=== PATIENT | female | born 1975 | race Caucasian/White ===

== ENCOUNTER → 2017-06-29 14:05 | Outpatient (CLI) | payer OTHER, MEDICAID ==
[2017-06-29 15:15] LABS: APPEARANCE CLEAR (CLEAR); BILIRUBIN NEGATIVE (NEGATIVE); COLOR YELLOW (YELLOW); GLUCOSE NEGATIVE (NEGATIVE); KETONE NEGATIVE (NEGATIVE); LEUKOCYTE ESTERASE NEGATIVE (NEGATIVE); NITRITE NEGATIVE (NEGATIVE); PROTEIN NEGATIVE (NEGATIVE); SPECIFIC GRAVITY 1.015 (1.005-1.020); UROBILINOGEN NORMAL (NORMAL)
== END | disposition home or self-care (01) ==
LOC: D.LDO 14:05
PROVIDERS: Obstetrics & Gynecology
DX: O26.893 Other specified pregnancy related conditions, third trimester (principal); Z3A.32 32 weeks gestation of pregnancy; R10.9 Unspecified abdominal pain

== ENCOUNTER 2017-08-01 10:27 | Inpatient (IN) | payer OTHER, MEDICAID ==
[2017-08-01] VITALS (22 sets, daily range): BP systolic 150–199; BP diastolic 75–99; BMI 38.0
[2017-08-01 11:35] LABS: ANION GAP 13.4 mmol/L (8-16); CALCIUM 8.6 mg/dL (8.5-10.1); CARBON DIOXIDE 22.8 mmol/L (21.0-32.0); CREATININE - SERUM 0.9 mg/dL (0.6-1.3); POTASSIUM - SERUM 3.2 mmol/L (3.5-5.1); URIC ACID 6.9 mg/dL (2.6-7.2)
[2017-08-01 12:25] LABS: HEMATOCRIT 33.1 % (36.0-48.0); MCH 27.2 pg (26.0-34.0); MCHC 33.2 g/dL (31.0-37.0); MCV 81.9 fL (80.0-100.0); MEAN PLATELET VOLUME 11.1 fL (7.4-10.4); RBC 4.04 10x6/uL (4.00-5.40); RDW 14.7 % (11.5-14.5); WBC 7.3 10x3/uL (4.8-10.8)
[2017-08-01 12:44] LABS: APPEARANCE SLT CLOUDY (CLEAR); BILIRUBIN NEGATIVE (NEGATIVE); COLOR DK YELLOW (YELLOW); GLUCOSE NEGATIVE (NEGATIVE); KETONE NEGATIVE (NEGATIVE); NITRITE NEGATIVE (NEGATIVE); PROTEIN 3+ mg/dL (NEGATIVE); SPECIFIC GRAVITY 1.015 (1.005-1.020)
[2017-08-01 12:45] LABS: BACTERIA MODERATE /hpf (NONE SEEN); EPITHELIAL CELLS 0-5 /hpf (0-5); GRANULAR CAST 0-5 /lpf (NONE SEEN); HYALINE CAST RARE /lpf (NONE SEEN); MUCUS <1+ /lpf (NONE SEEN); RED CELLS - URINE 0-5 /hpf (0-5)
[2017-08-01] MEDS ORDERED: FERROUS SULFAT325 MG PO (13:32)
--- NOTE | 2017-08-01 15:42 | NUR ---
FUNDUS IS MIDLINE AT UMBILICUS AND FIRM. MILY PAD SCANT RED BLEDDING. WILL CONTINUE TO MONITOR
--- NOTE | 2017-08-01 15:53 | NUR ---
RECEIVED PT FROM RECOVERY ROOM VIA PT BED, RESP EVEN AND UNLABORED, HEART RRR, IV TO LEFT WRIST PATENT INFUSING NS WITH 20U OF PITOCIN AT 125ML/HR WITHOUT DIFFICULTY, NO S/SX OF INFILTRATION/INFECTION, LOW TRANSVERSE ABDOMINAL DRG CDI, U/U, FUNDUS FIRM, LOCHIA RUBRA TO PERIPAD NOTED SCANT AMOUNT, NO CLOTS NOTED, NO EDEMA NOTED TO BLE, PEDAL PULSES 2+ BILATERALLY, SCD'S ON AND PUMP WORKING PROPERLY, PIZARRO CATHETER IN PLACE TO GRAVITY DRAINAGE WITH 100ML CLEAR FILOMENA COLORED URINE IN BAG, INCENTIVE SPIROMETRY TEACHING COMPLETED WITH PT RETURN DEMONSTRATION UP TO 1500ML INSPIRED, C/L IN EASY REACH.
--- NOTE | 2017-08-01 16:43 | NUR ---
MAGNESIUM SULFATE BOLUS COMPLETED, MAINTENANCE DOSE INITIATED PER MD ORDERS. REPORTS PAIN LEVEL REMAINS A 6 ON NUMERIC PAIN SCALE, REVIEWED CASING BLOWER USE AND ENCOURAGED TO PUSH CASING BLOWER BUTTON NEEDED. STATES UNDERSTANDING OF INSTRUCTIONS GIVEN. SPOUSE AT BEDSIDE. LUNGS CTAB, RESP EVEN AND UNLABORED. DTR 1+ BILATERALLY.
--- NOTE | 2017-08-01 17:00 | NUR ---
MAGNESIUM SULFATE FLOW SHEET RECORD INITIATED FOR HOURLY MONITORING. DISCUSSED STRICT I&O ORDERS. DENIES HEADACHE. SEIZURE PRECATIONS.
--- NOTE | 2017-08-01 17:35 | NUR ---
NOTIFIED DR BATISTA OF PT ELEVATED BLOOD PRESSURES AND MAGNESIUM SULFATE MAINTENANCE DOSE STATUS, NEW ORDERS RECEIVED. Jerardo ADAME RN NOTIFIED DR JEAN OF PT STATUS WILL BE WIND TURBINE MECHANIC THIS PM.
--- NOTE | 2017-08-01 17:39 | NUR ---
1/2 NS WITH 40 U PITOCIN UP @ 50ML/HR AT THIS TIME.
--- NOTE | 2017-08-01 17:39 | NUR ---
LABETOLOL 20MG IVP GIVEN X1 PER MD ORDERS. REPOSITIONED PT, NEW BP CUFF APPLIED TO PT, INSTRUCTED PT TO KEEP ARM STRAIGHT WHEN CUFF INFLATES. IN ARMS AT THIS TIME. SPOUSE TO ROOM, CALL LIGHT IN EASY REACH. CLEAR LIQUID TRAY IN ROOM PER DIETARY ORDERS NOTED POST-OP.
--- NOTE | 2017-08-01 18:00 | NUR ---
PT NOTED TO BE SITTING UP IN BED HOLDING AT THIS TIME WITH ARMS BENT. PT REPOSITIONED TO RT LATERAL WITH PILLOWS AT BACK FOR SUPPORT. BP CUFF PLACED ON LT ARM. SCANT LOCHIA RUBRA NOTED TO PERIPAD. PADS CHANGED AT THIS TIME. I&O TAKEN AT THIS TIME. PT DENIES NEEDS.
--- NOTE | 2017-08-01 18:30 | NUR ---
PT AWAKE, ALERT, AND SITTING UP IN BED, LIGHTS DIMMED. SEIZURE PRECAUTIONS. C/L IN EASY REACH. TOLERATING SIPS CLEAR LIQUIDS. SPOUSE AT BEDSIDE, REMINDED PT TO KEEP ARM STRAIGHT WHEN CUFF INFLATING. STATES UNDERSTANDING, DENIES PAIN. PT AND SPOUSE SMILING. DTR 1+/1+, LUNGS CTAB, HEART RRR, RESP EVEN AND UNLABORED.
--- NOTE | 2017-08-01 19:02 | NUR ---
RN TO PT BS FOR GE. PT RESTING IN BED IN RIGHT TILT POSITION, PLAYING ON PHONE IN NO ACUTE DISTRESS. PT IS A 42YO G3 NOW WITH PRIMARY C/S TODAY @ 1444 OF VIALBE FEMALE INFANT. INFANT @ 36.6 WKS GESTATION. PT WITH PRE-TERM DELIVERY R/T SEVERE RANGE B/P READINGS. AAOX3. HR REGULAR. LUNGS CTAB. EKG LEADS PLACED AT THIS TIME AND CONT PULSE OX PLACED AT THIS TIME. ADOMEN SOFT AND NON DISTENDED. BS ACTIVE TIMES 4. LOW TRANSVERSE DRESSING NOTED. SMALL AMOUNT OF SERO-SANGENOUS DRAINAGE NOTED TO DRESSING. WILL CONT TO MONITOR. FUNDUSE FIRM AND ML @ U. LOCHIA RUBRA SCANT. MILY PAD AND CHUX CHANGED AT THIS TIME, MILY CARE PROVIDED. PIZARRO IN PLACE AND DRAINING CLEAR YELLOW URINE. OUTPUT WNL. SCD'S IN PLACE TO LOWER EXTREMITIES BILATEALLY. 3+ DTR'S NOTED TO LOWER EXTRMITIES BILATERALLY, WITH NO CLONUS. NO EDEMA NOTED TO UPPER OR LOWER EXTREMITIES BILATERALLY. NS WITH 20UNITS PITOCIN INFUSING VIA PUMP AT 50ML/HR, MAGNESIUM SULFATE INFUSING VIA PUMP AT 50ML/HR; 2GM/HR AND DILAUDID ASSEMBLY CLEANER INFUSING VIA PUMP, SETTINGS VERIFIED, TO EXISTING 18G IV IN LEFT WRIST. NO REDNESS, EDEMA, OR DRAINAGE NOTED TO SITE. PT RATES PAIN 3/10 AT THIS TIME, STATES GOOD RESPONSE TO DILAUDID ASSEMBLY CLEANER. PT DENIES ANY NEEDS. BED IN LOW POSITION, SIDE RAILS UP TIMES 2, CALL LIGHT AND PHONE IN REACH. WILL CONT TO MONITOR PT STATUS.
--- NOTE | 2017-08-01 19:22 | NUR ---
SPOKE WITH DR. JEAN REGARDING PT B/P READINGS, WILL RETURN CALL WITH ORDERS.
--- NOTE | 2017-08-01 19:30 | NUR ---
DR. JEAN RETURNS CALL TO UNIT. PER , WILL PROVIDE PT WITH 10-20MG HYDRALAZINE [id number] PRN FOR B/P 160'S/90'S. ORDERS PLACED AND NOTED.
--- NOTE | 2017-08-01 19:35 | NUR ---
RN AT PT BS. 10MG HYDRALZINE IVP PROVIDED TO PT AT THIS TIME FOR ELEVATED B/P OF 190'S/90'S. GIVEN SLOW IVP DILUTED IN 10ML NS. WATER MUG PROVIDED TO PT AT THIS TIME.
--- NOTE | 2017-08-01 20:08 | NUR ---
REMAINDER OF 20MG HYDRALAZINE, 10MG PROVIDED TO PT AT THIS TIME, SLOW IVP DILUTED IN 10ML NS. B/P CURRENTLY 173/84. PT WITH GOOD RESPONSE TO INITIAL 10MG DOSE, BUT REMAINS OVER 160'S/90'S. WILL CONT TO MONITOR PT STATUS. PT RESTING IN BED IN SEMI-FOWLERS POSITION IN NO ACUTE DISTRESS. PT DENIES ANY NEEDS AT THIS TIME. BED IN LOW POSITION, SIDE RAILS UP TIMES 2, CALL LIGHT AND PHONE IN REACH.
--- NOTE | 2017-08-01 20:54 | NUR ---
SPOKE WITH DR. JEAN REGARDING CURRENT B/P READINGS. NO NEW ORDERS AT THIS TIME. CONT TO MONITOR B/P READINGS AND PROVIDE PT WITH HYDRALAZINE 10-20MG IVP Q2H PRN.
--- NOTE | 2017-08-01 21:05 | NUR ---
RN TO PT BS FOR ASSESSMENT. PT RESTING IN BED IN HIGH FOWLERS POSITION, HOLDING . PT IN NO ACUTE DISTRESS. WATER MUG REFRESHED. DTR'S NOW 2+ IN LOWER EXTREMITIES BILATERALLY. PT DENIES ANY NEEDS AT THIS TIME. OUTPUT REMAINS WNL. BED IN LOW POSITION, SIDE RAILS UP TIMES 2, CALL LIGHT AND PHONE IN REACH. WILL CONT TO MONITOR PT STATUS.
--- NOTE | 2017-08-01 21:18 | NUR ---
CLINICAL LAB CALLED AND REMINDED OF NEED FOR CBC AND MAGNESIUM LEVEL TO BE DRAWN.
[2017-08-01 21:29] LABS: BASOPHILS 0.1 % (0-2); EOSINOPHILS 0.3 % (0-7); HEMATOCRIT 35.1 % (36.0-48.0); HEMOGLOBIN 11.8 g/dL (12-16); IMMATURE GRANULOCYTES 0.3 % (0-5); LYMPHOCYTES 20.9 % (15-50); MCH 27.5 pg (26.0-34.0); MCHC 33.6 g/dL (31.0-37.0); MCV 81.8 fL (80.0-100.0); MEAN PLATELET VOLUME 10.6 fL (7.4-10.4); MONOCYTES 9.4 % (2-11); PLATELET COUNT 249 10x3/uL (130-400); RBC 4.29 10x6/uL (4.00-5.40); RDW 14.7 % (11.5-14.5)
--- NOTE | 2017-08-01 22:04 | NUR ---
B/P REMAINS SLIGHTLY ELEVATED WITH BLOOD PRESSURE READINGS 160'S/80-90'S. HYDRALAZINE 10MG GIVEN TO PT IVP DILUTED WITH 10ML NS. GIVEN SLOW IVP. PT RESTING IN BED IN HIGH FOWLERS POSITION, HOLDING INFANT, IN NO ACUTE DISTRESS. LUNGS CTAB WITH DTR'S 2+ BILATERALLY. OUTPUT WNL. PT DENIES ANY FURTHER NEEDS AT THIS TIME. BED IN LOW POSITION, SIDE RAILS UP TIMES 2, CALL LIGHT AND PHONE IN REACH. WILL CONT TO MONITOR PT STATUS.
[2017-08-01 22:13] LABS: WBC 14.8 10x3/uL (4.8-10.8)
--- NOTE | 2017-08-01 22:22 | NUR ---
B/P NOW 155/75. WILL CONT TO MONITOR
--- NOTE | 2017-08-01 22:36 | NUR ---
RECIEVED CALL FROM CLINICAL LAB. MAGNESIUM SULFATE LEVEL 4.5. NO ACTION TAKEN. WILL CONT TO PROVIDE PT WITH MAGENSIUM SULFATE THERAPY @ 2GM/HR VIA PUMP.
--- NOTE | 2017-08-01 23:05 | NUR ---
RN TO PT BS FOR ASSESSMENT. PT RESTING IN BED IN HIGH FOWLERS POSITION, HOLDING . PT IN NO ACUTE DISTRESS. VS MORE STABLE. OUTPUT 40ML THE PAST HOUR. WATER MUG REFRESHED. PT DENIES ANY NEEDS AT THIS TIME. BED IN LOW POSITION, SIDE RAILS UP TIMES 2, CALL LIGHT AND PHONE IN REACH. WILL CONT TO MONITOR PT STATUS.
--- NOTE | 2017-08-01 23:20 | NUR ---
ICE PACK TO ABDOMEN REFRESHED
[2017-08-02] VITALS (47 sets, daily range): BP systolic 132–174; BP diastolic 65–99; BMI 37.9
--- NOTE | 2017-08-02 00:05 | NUR ---
RN TO PT BS FOR ASSESSMENT. PT RESTING IN BED WITH EYES CLOSED, IN NO ACUTE DISTRESS. RESPIRATIONS EVEN AND UNLABORED. PT AWAKENS EASILY WHEN SPOKEN TO. VS WNL. URINE OUTPUT 40ML THE PAST HOUR. PT DENIES ANY NEEDS AT THIS TIME. BED IN LOW POSITION, SIDE RAILS UP TIMES 2, CALL LIGHT AND PHONE IN REACH. WILL CONT TO MONITOR PT STATUS.
--- NOTE | 2017-08-02 01:05 | NUR ---
RN TO PT BS FOR ASSESSMENT. PT RESTING IN BED IN SEMI-FOWLERS POSITION, WITH EYES CLOSED, IN NO ACUTE DISTRESS. RESPIRATIONS EVEN AND UNLABORED. PT AWAKENS EASILY WHEN SPOKEN TO. OUTPUT INCREASED TO 175ML THE PAST HOUR. VS REMAIN WNL. PT DENIES ANY NEEDS AT THIS TIME. BED IN LOW POSITION, SIDE RAILS UP TIMES 2, CALL LIGHT AND PHONE IN REACH. WILL CONT TO MONITOR PT STATUS.
--- NOTE | 2017-08-02 01:42 | NUR ---
2 B/P OF 170'S/90'S NOTED. HYDRALAZINE 10MG GIVEN TO PT SLOW IVP DILUTED IN 10ML NS. WILL CONT TO MONITOR B/P READINGS. PT RESTING IN BED IN HIGH FOWLERS POSITION BOTTLEFEEDING INFANT. PT DENIES ANY NEEDS AT THIS TIME. BED IN LOW POSITION, SIDE RAILS UP TIMES 2, CALL LIGHT AND PHONE IN REACH. SO AT PT BS FOR SUPPORT AND ASSISTANCE. AT PT BS FOR COUPLET CARE.
--- NOTE | 2017-08-02 02:05 | NUR ---
RN TO PT BS FOR ASSESSMENT. PT RESTING IN BED IN HIGH FOWLERS POSITION ATTEMPTING TO BOTTLEFEED . B/P REMAINS MILDLY ELEVATED, WILL CONT TO MONITOR AND PROVIDE ADDITIONAL 10MG HYDRALAZINE IVP IF NECESSARY. URINE OUTPUT 225ML FOR PAST HOUR. WATER MUG REFRESHED. PT DENIES ANY FURTHER NEEDS. BED IN LOW POSITION, SIDE RAILS UP TIMES 2, CALL LIGHT AND PHONE IN REACH. SO REMAINS AT PT BS FOR SUPPORT AND ASSISTANCE. INFANT REMAINS AT PT BS FOR COUPLET CARE. WILL CONT TO MONITOR PT STATUS.
--- NOTE | 2017-08-02 02:57 | NUR ---
CLINICAL LAB AT PT BS TO DRAW 0245 MAGNESIUM LEVEL
--- NOTE | 2017-08-02 03:05 | NUR ---
RN TO PT BS FOR ASSESSMENT. PT RESTING IN BED IN SEMI-FOWLERS POSITION, WITH EYES CLOSED, IN NO ACUTE DISTRESS. RESPIRATIONS EVEN AND UNLABORED. B/P READINGS WNL. OUTPUT WNL. BED IN LOW POSITION, SIDE RAILS UP TIMES 2, CALL LIGHT AND PHONE IN REACH. SO REMAINS AT PT BS FOR SUPPORT AND ASSISTANCE. REMAINS AT PT BS FOR COUPLET CARE. WILL CONT TO MONITOR PT STATUS.
[2017-08-02 03:23] LABS: BASOPHILS 0.1 % (0-2); EOSINOPHILS 0.3 % (0-7); HEMATOCRIT 34.1 % (36.0-48.0); HEMOGLOBIN 11.4 g/dL (12-16); IMMATURE GRANULOCYTES 0.3 % (0-5); LYMPHOCYTES 10.4 % (15-50); MCH 27.5 pg (26.0-34.0); MCHC 33.4 g/dL (31.0-37.0); MCV 82.2 fL (80.0-100.0); MEAN PLATELET VOLUME 10.6 fL (7.4-10.4); MONOCYTES 7.2 % (2-11); NEUTROPHILS 81.7 % (40-80); PLATELET COUNT 247 10x3/uL (130-400); RBC 4.15 10x6/uL (4.00-5.40); RDW 14.9 % (11.5-14.5); WBC 14.8 10x3/uL (4.8-10.8)
--- NOTE | 2017-08-02 04:18 | NUR ---
RN TO PT BS FOR ASSESSMENT. PT RESTING IN BED IN SEMI-FOWLERS POSITION, WITH EYES CLOSED, IN NO ACUTE DISTRESS. RESPIRATIONS EVEN AND UNLABORED. B/P REMAINS WNL. OUTPUT WNL. BED IN LOW POSITION, SIDE RAILS UP TIMES 2, CALL LIGHT AND PHONE IN REACH. SO REMAINS AT PT BS FOR SUPPORT AND ASSISTANCE. INFANT REMAINS AT PT BS FOR COUPLET CARE. WILL CONT TO MONITOR PT STATUS.
--- NOTE | 2017-08-02 05:05 | NUR ---
RN TO PT BS FOR ASSESSMENT. PT RESTING IN BED IN SEMI-FOWLERS POSITION IN NO AUTE DISTRESS. WATER MUG REFRESHED. PT DENIES ANY FURTHER NEEDS AT THIS TIME. BED IN LOW POSITION, SIDE RAILS UP TIMES 2, CALL LIGHT AND PHONE IN REACH. SO REMAINS AT PT BS FOR SUPPORT AND ASSISTANCE. INFANT REMAINS AT PT BS FOR COUPLET CARE. WILL CONT TO MONITOR PT STATUS.
--- NOTE | 2017-08-02 05:16 | NUR ---
PT RINGS CALL LIGHT. THIS RN TO PT'S ROOM. PT REPORTS SHE HEARD SOMETHING FALL TO THE GROUND WHEN SHE MOVED IN BED. PIZARRO BAG NOTED TO BE ON FLOOR. BAG REPLACED TO HANGING ON SIDE OF BED. FRESH ICE WATER SERVED PER PT REQUEST. REPORT GIVEN TO Leidy DONALDSON RN
--- NOTE | 2017-08-02 06:00 | NUR ---
HYDRALAZINE 10MG GIVEN SLOW IVP, DILUTED IN 10ML NS. GIVEN FOR CONTINUOUS B/P READINGS OF 160'S/80'S. WILL PROVIDE PT WITH 10MG IVP NOW AND CONT TO MONITOR B/P READINGS. IF REMAIN ELEVATED WILL PROVIDE PT WITH ADDITIONAL 10MG FOR TOTAL OF 20MG.
--- NOTE | 2017-08-02 06:05 | NUR ---
RN TO PT BS FOR ASSESSMENT. PT RESTING IN BED IN SEMI-FOWLERS POSITION, WITH EYES CLOSED, IN NO ACUTE DISTRESS. RESPIRATIONS EVEN AND UNLABORED. PT PROVIDED WITH 10MG HYDRALAZINE FOR ELEVATED B/P, WILL CONT TO MONITOR. BED IN LOW POSITION, SIDE RAILS UP TIMES 2, CALL LIGHT AND PHONE IN REACH. SO REMAINS AT PT BS FOR SUPPORT AND ASSISTANCE. WILL CONT TO MONITOR PT STATUS.
--- NOTE | 2017-08-02 06:27 | NUR ---
ADDITIONAL 10MG HYDRALAZINE PROVIDED TO PT AT THIS TIME, SLOW IVP, DILUTED IN 10ML NS. WILL CONT TO MONITOR PT B/P READINGS.
[2017-08-02 07:24] LABS: RAPID PLASMA REAGIN Non Reactive (Non Reactive)
--- NOTE | 2017-08-02 07:33 | NUR ---
pt co headache- rates pain a 10 on scale of 0-10. states throbbing in frontal area. toradol 30 mg iv slowly given for pain. assessment done. pt supine. masha papito area cleansed- pt on several pads- linens changed and repositioned to lt tilt. abd soft- fundus uu/firm/scant lochia noted on pads.scd's on.
--- NOTE | 2017-08-02 07:57 | NUR ---
dr cheng in room to see pt.
--- NOTE | 2017-08-02 07:57 | NUR ---
DR BATISTA INFORMED OF PT 'S CO HEADACHE. INFORMED THAT TORADOL WAS GIVEN AND PT STATES THAT HER HEADACHE IS BETTER AT THIS TIME AFTER TORADOL. DR BATISTA REMOVES ABD DRESSING.
--- NOTE | 2017-08-02 08:14 | NUR ---
PT SIPPING ON LIQ DIET. STATES THAT HER HEADACHE IS GONE.
--- NOTE | 2017-08-02 08:50 | NUR ---
SITTING UP IN BED FEEDING .
--- NOTE | 2017-08-02 09:20 | NUR ---
SITTIN UP IN BED HOLDING . FEEDING COMPLETE. ASK IF PT WOULD LIKE FOR TO GO TO NURSERY SO SHE CAN REST. BABY TO NURSERY. PT TURNED TO RT SIDE- PROPPED WITH PILLOWS.
--- NOTE | 2017-08-02 10:01 | NUR ---
PT RESTING ON RT SIDE- EYES CLOSED. RESP REG AND EVEN.
--- NOTE | 2017-08-02 10:49 | NUR ---
asleep when entered room. vs done. no requests.
--- NOTE | 2017-08-02 11:15 | NUR ---
DR BATISTA CALLS UNIT- REPORT GIVEN, SERIAL BPS GIVEN. RESULTS OF MOST CURRENT MAG LEVEL OF 5.9 GIVEN. NEW ORDER RECEIVED.
--- NOTE | 2017-08-02 11:45 | NUR ---
pt sitting up in bed feeding . informed that will recheck bp after feeding infant. states that is starting to get headache back.
--- NOTE | 2017-08-02 12:46 | NUR ---
baby to nursery. pt tilted to lt side. vs done.
--- NOTE | 2017-08-02 12:57 | NUR ---
sitting up in bed eating reg diet.
--- NOTE | 2017-08-02 13:14 | NUR ---
report given to dr cheng- vs, order received to call him if systolic bp greater than 165.
--- NOTE | 2017-08-02 13:45 | NUR ---
vs done. iv changed to saline lock and flushed with 10ccns. pt dozing at times. states that pain at incision is "about a 5 on scale of 0-10. oral pain med given as ordered by .
--- NOTE | 2017-08-02 14:49 | NUR ---
pt states pain is better- rates pain 2 on scale of 0-10. baby in room for feeding.
[2017-08-02 15:58] LABS: HEMATOCRIT 32.8 % (36.0-48.0); HEMOGLOBIN 10.9 g/dL (12-16); MCH 27.4 pg (26.0-34.0); MCHC 33.2 g/dL (31.0-37.0); MCV 82.4 fL (80.0-100.0); MEAN PLATELET VOLUME 10.3 fL (7.4-10.4); RBC 3.98 10x6/uL (4.00-5.40); RDW 15.2 % (11.5-14.5); WBC 18.2 10x3/uL (4.8-10.8)
--- NOTE | 2017-08-02 16:15 | NUR ---
instructed to call nurse when needs to void- before getting up out of bed.
--- NOTE | 2017-08-02 16:17 | NUR ---
finished feeding infant. vs done. bravo cath removed post bulb deflated. 1250cc emptied from bag.
--- NOTE | 2017-08-02 17:49 | NUR ---
pt sitting up in bed. states that headache is gone. states feels like might be able to void. vs done.
--- NOTE | 2017-08-02 18:09 | NUR ---
up to bathroom- voided 150cc urine in container. into shower- tolerated well. states getting dizzy towards end of shower but ambulated to bed. gown and pads on. instructed on wound care. pt putting on skin lotion.
--- NOTE | 2017-08-02 18:12 | NUR ---
iv saline lock came out while putting on clothes- cath intact- bandaide placed.
--- NOTE | 2017-08-02 18:16 | NUR ---
denies headache. rates pain at incision a 3 on scale of 0-10. states would like to take pain medication at this time. nursery brings baby to room. infant in mothers arms- feeding .
--- NOTE | 2017-08-02 19:10 | NUR ---
RN TO PT BS FOR GE. PT RESTING IN BED IN HIGH FOWLERS POSITION, HOLDING , IN NO ACUTE DISTRESS. PT IS A 42YO G3 NOW WITH PRIMARY C/S YESTERDAY @ 1444 OF VIABLE FEMALE . @ 36.6 WKS GESTATION. PT WITH PRE-TERM DELIVERY R/T SEVERE RANGE B/P READINGS. AAOX3. HR REGULAR. LUNGS CTAB. ABDOMEN SOFT AND NON TENDER. BS ACTIVE TIMES 4. LOW TRANSVERSE INCISION NOTED. MEDHAT IN PLACE. INCISION WELL PROXIMATED WITH NO REDNESS, EDEMA, OR DRAINAGE NOTED TO SITE. FUNDUS FIRM AND ML @ U. LOCHIA RUBRA SCANT. MILY PAD AND PANTIES IN PLACE. NO EDEMA NOTED TO UPPER AND LOWER EXTREMITIES BILATERALLY. PT VOIDING WITHOUT DIFFICULTY. PT TOLERATING REGULAR DIET. PT STATES SHE HAS NOT PASSED GAS SINCE C/S. PT AMBULATING WITHOUT DIFFICULTY. PT RATES PAIN 2/10. PT CURRENTLY TAKING LABETALOL 200MG PO TID FOR B/P CONTROL. NO IV ACCESS. WATER MUG REFRESHED AT THIS TIME. PT DENIES ANY FURTHER NEEDS. BED IN LOW POSITION, SIDE RAILS UP TIMES 2, CALL LIGHT AND PHONE IN REACH. INFANT REMAINS AT PT BS FOR SUPPORT AND ASSISTANCE. WILL CONT TO MONITOR PT STATUS.
--- NOTE | 2017-08-02 20:42 | NUR ---
RN TO PT BS. PT RESTING IN BE IN SEMI-FOWLERS POSITION, PLAYING ON PHONE, PT IN NO ACUTE DISTRESS. B/P TAKEN, WNL. 2100 DOSE OF LABETALOL 200MG PO PROVIDED AT THIS TIME. FRESH WATER MUG PROVIDED. PT DENIES ANY FURTHER NEEDS AT THIS TIME. PT STATES SHE WAS ABLE TO ABULATE TO BR AND VOID. BED IN LOW POSITION, SIDE RAILS UP TIMES 2, CALL LIGHT AND PHONE IN REACH. INFANT REMAINS AT PT BS FOR COUPLET CARE. WILL CONT TO MONITOR PT STATUS.
--- NOTE | 2017-08-02 23:07 | NUR ---
RN TO PT BS FOR ROUNDS. PT RESTING IN BED IN SEMI-FOWLERS POSITION, HOLDING . PT IN NO ACUTE DISTRESS. WATER MUG REFRESHED AT THIS TIME. PT DENIES ANY FURTHER NEEDS AT THIS TIME. BED IN LOW POSITION, SIDE RAILS UP TIMES 2, CALL LIGHT AND PHONE IN REACH. INFANT REMAINS AT PT BS FOR COUPLET CARE. WILL CONT TO MONITOR PT STATUS.
[2017-08-03] VITALS (10 sets, daily range): BP systolic 129–176; BP diastolic 73–88
--- NOTE | 2017-08-03 00:58 | NUR ---
RN TO PT BS FOR ROUNDS. PT RESTING IN BED IN SEMI-FOWLERS POSITION, HOLDING , PT IN NO ACUTE DISTRESS. PT C/O PAIN, RATES 8/10, REQUESTS MEDICATION. 1 TAB IBUPROFEN AND 1 TAB NORCO 10 PROVIDED AT THIS TIME. PT DENIES ANY FURTHER NEEDS. BED IN LOW POSITION, SIDE RAILS UP TIMES 2, CALL LIGHT AND PHONE IN REACH. INFANT REMAINS AT PT BS FOR COUPLET CARE. WILL CONT TO MONITOR PT STATUS.
--- NOTE | 2017-08-03 02:53 | NUR ---
RN TO PT BS FOR ROUNDS. PT RESTING IN BED IN SEMI-FOWLERS POSITION, WITH EYES CLOSED, IN NO ACUTE DISTRESS. REPSPIRATIONS EVEN AND UNLABORED. BED IN LOW POSITION, SIDE RAILS UP TIMES 2, CALL LIGHT AND PHONE IN REACH. WILL CONT TO MONITOR PT STATUS.
--- NOTE | 2017-08-03 04:14 | NUR ---
RN TO PT BS. PT SITTING IN BED IN HIGH FOWLERS POSITION, FEEDING . PT IN NO ACUTE DISTRESS. VS TAKEN, MILDLY ELEVATED. WILL CONT TO MONITOR. WATER MUG REFRESHED. PT DENIES ANY FURTHER NEEDS AT THIS TIME. BED IN LOW POSITION, SIDE RAILS UP TIMES 2, CALL LIGHT AND PHONE IN REACH. SO AT PT BS FOR SUPPORT AND ASSISTANCE. INFANT REMAINS AT PT BS FOR COUPLET CARE. WILL CONT TO MONITOR PT STATUS.
--- NOTE | 2017-08-03 05:03 | NUR ---
RN TO PT BS FOR B/P RECHECK. B/P READING NOW 159/78. PT DENIES ANY NEEDS AT THIS TIME. BED IN LOW POSITION, SIDE RAILS UP TIMES 2, CALL LIGHT AND PHONE IN REACH. SO REMAINS AT PT BS FOR SUPPORT AND ASSISTANCE. INFANT AT PT BS FOR COUPLET CARE. WILL CONT TO MONITOR.
--- NOTE | 2017-08-03 06:40 | NUR ---
RN TO PT BS FOR ROUNDS. PT SITTING IN BED IN HIGH FOWLERS POSITION, HOLDING , PT IN NO ACUTE DISTRESS. PT DENIES ANY NEEDS AT THIS TIME. BED IN LOW POSITION, SIDE RAILS UP TIMES 2, CALL LIGHT AND PHONE IN REACH. SO AT PT BS FOR SUPPORT AND ASSISTANCE. REMAINS AT PT BS FOR COUPLET CARE. WILL CONT TO MONITOR PT STATUS AND GIVE REPORT TO AM SHIFT.
--- NOTE | 2017-08-03 07:20 | NUR ---
PT IN SEMI-FOWLERS POSITION AT 45 DEGREES. WITH INFANT PRESENT IN CRIB AT BEDSIDE. PHYSICAL ASSESSMENT DONE, SEE SHIFT ASSESSMENT. BIKINI LINE INCISION PRESENT. NOTED TO BE CLEAN, DRY AND INTACT WITH MEDHAT PRESENT FOR CLOSURE. PT RATES PAIN AT A 4/10 ON NUMERIC SCALE. DENIES FURTHER NEEDS OR CONCERNS AT THIS TIME. CALL LIGHT IN REACH, NAME PLACED ON BOARD AND BED PLACED IN LOWEST POSITION.
--- NOTE | 2017-08-03 07:25 | NUR ---
PT DENIES HEADACHE, VISUAL PROBLEMS, EPIG OR RUQ PAIN. DTR'S 1+/1+; NO CLONUS.
--- NOTE | 2017-08-03 07:30 | NUR ---
PT REINSTRUCTED ON TCDB EVERY HOUR. ALSO INSTRUCTED ON INCENTIVE SPIROMETER AND PT PULLS 1500.
--- NOTE | 2017-08-03 07:32 | NUR ---
PT C/O INCISIONAL/ABDOMINAL PAIN OF "4" ON 0-10 PAIN SCALE. PT REQUESTS AND RECEIVES NORCO 10/325 AND MOTRIN 600 PO. PT INSTRUCTED ON MEDS. VERBALIZES UNDERSTANDING. FRESH ICE WATER PROVIDED TO PT.
--- NOTE | 2017-08-03 08:05 | NUR ---
PT SITTING UP IN BED. STATES PAIN MEDICATION RELIEVED PAIN. DENIES NEEDS OR C/O.
--- NOTE | 2017-08-03 09:00 | NUR ---
PT SITTING UP IN BED. DENIES PAIN. LINENS PROVIDED FOR SHOWER.
--- NOTE | 2017-08-03 10:30 | NUR ---
DR BATISTA NOTIFIED OF PT BLOOD PRESSURES FROM LAST PM TO THIS AM. NEW ORDER RECEIVED.
--- NOTE | 2017-08-03 10:47 | NUR ---
PT SITTING UP IN BED. HOLDS WITH MUCH WARMTH SHOWN. DENIES PAIN OR NEEDS.
--- NOTE | 2017-08-03 11:30 | NUR ---
PT AMBULATORY IN HALLS. TOLERATING ACTIVITY WELL.
--- NOTE | 2017-08-03 13:14 | NUR ---
PT C/O INCISIONAL PAIN OF "3" ON 0-10 PAIN SCALE. REQUESTS AND RECEIVES MOTRIN 600 MG AND NORCO 10/325 PO. PT INSTRUCTED ON MEDS. VERBALIZES UNDERSTANDING. PT USES IS AT THIS TIME.
--- NOTE | 2017-08-03 14:00 | NUR ---
PT SITTING UP IN BED. CARING FOR INFANT. DENIES C/O OR NEEDS.
--- NOTE | 2017-08-03 15:19 | NUR ---
PT SITTING UP IN BED. HOLDS WITH MUCH WARMTH SHOWN. C/O "SORENESS". PT ENCOURAGED TO AMBULATE IN HALLS. PT STATES PASSING GAS AND VOIDING WITHOUT DIFFICULTY. PT STATES VAGINAL BLEEDING "HAS SLOWED DOWN QUITE A BIT". DENIES PASSING CLOTS. VOICES NO C/O OR NEEDS.
--- NOTE | 2017-08-03 16:19 | NUR ---
PT SITTING UP IN BED. C/O ABDOMINAL PAIN AND GAS PAIN. INCISION WITH MEDHAT INTACT WITHOUT REDNESS, SWELLING OR DRAINAGE NOTED. PT PROVIDED COFFEE AND ENCOURAGED TO AMBULATE IN HALLS.
--- NOTE | 2017-08-03 17:10 | NUR ---
PT C/O ABDOMINAL PAIN OF "6" ON 0-10 PAIN SCALE. NORCO 10/325 GIVEN PO ORDERED. PT INSTRUCTED ON MED. VERBALIZES UNDERSTANDING.
--- NOTE | 2017-08-03 18:01 | NUR ---
PT AMBULATORY IN HALLS. TOLERATING WELL. STATES PAIN IMPROVED.
--- NOTE | 2017-08-03 19:04 | NUR ---
REPORT GIVEN TO ON-COMING SHIFT.
--- NOTE | 2017-08-03 19:45 | NUR ---
PT REPORT RECEIVED FROM AM SHIFT TO ASSUME PATIENT CARE AT THIS TIME. PT LYING IN BED WITH AT BEDSIDE IN OPEN CRIB. PATIENT DENIES NEEDS AT THIS TIME. ASSESSMENT COMPLETED. FUNDUS FIRM +2, MIDLINE, BLEEDING SCANT,PERIPAD IN PLACE. ABDOMINAL PAD IN PLACE OVER INCISION, DRY AND CLEAN.
--- NOTE | 2017-08-03 21:01 | NUR ---
PATIENT SITTING UP IN BED AT THIS TIME,CALL URB[place] IN REACH, SIDE TABLE IN REACH WITH WATER PITCHER. SIGNIFICANT OTHER REMAINS AT BEDSIDE FOR ASSISTANCE. ICE WATER PROVIDED PER PT REQUEST. NO OTHER NEEDS IDENTIFIED.
--- NOTE | 2017-08-03 21:59 | NUR ---
PATIENT SITTING UP IN BED HOLDING . DENIES PAIN OR NEEDS AT THIS TIME
--- NOTE | 2017-08-03 22:56 | NUR ---
PATIENT SITTING UP IN BED HOLDING INFANT. BED LOCKED IN LOW POSITION, SIDERAILS UPX2, SIGNIFICANT OTHER REMAINS AT BEDSIDE FOR ASSISTANCE. BP 168/80, LABETALOL 300MG PO AT THIS TIME PER MD ORDERS. PT DENIES NEEDS OR PAIN AT THIS TIME.
[2017-08-04] VITALS (8 sets, daily range): BP systolic 148–187; BP diastolic 79–97
--- NOTE | 2017-08-04 01:20 | NUR ---
PATIENT AT THIS TIME, STATES THAT HER PAIN IS ABOUT THE SAME. MOTRIN 600MG PO AT THIS TIME PER MD ORDERS. SNACK PROVIDED. PT ASSISTED WITH AND EDUCATED ON PROPER LATCH. VERBALIZES UNDERSTANDING AND DENIES OTHER NEEDS AT THIS TIME.
--- NOTE | 2017-08-04 04:10 | NUR ---
PATIENT SITTING UP IN BED WATCHING TV, INFANT REMAINS IN OPEN CRIB AT BEDSIDE. FATHER OF BABY AT BEDSIDE FOR ASSISTANCE. PT DENIES NEEDS AT THIS TIME.
--- NOTE | 2017-08-04 05:10 | NUR ---
PT. LYING ON BACK WITH EYES CLOSED. HOLDING INFANT ON CHEST AND INFANT ALSO ASLEEP. AWAKENED PT. AND INQUIRED IF THIS NURSE COULD PUT TO OPEN CRIB AT BEDSIDE. PT. AGREEABLE AND STATES TO LEAVE IN ROOM DUE TO FEEDING COMING UP SOON. SAME DONE.
--- NOTE | 2017-08-04 06:05 | NUR ---
PATIENT SITTING UP IN BED HOLDING INFANT. ICE WATER PROVIDED, NO NEEDS IDENTIFIED.
--- NOTE | 2017-08-04 07:00 | NUR ---
report to am shift at this time to assume patient care.
--- NOTE | 2017-08-04 07:20 | NUR ---
RECEIVED PT SITTING UP IN BED. HOLDS INFANT WITH MUCH WARMTH SHOWN. VS NOTED. PT DENIES HEADACHE, VIS PROBLEMS, EPIG OR RUQ PAIN. FUNDUS FIRM AT U/1. RUBRA LOCHIA SCANT AMT. ABDOMINAL INCISION WITH MEDHAT; WELL APPROXIMATED. NO DRAINAGE, REDNESS OR SWELLING NOTED. PERIPAD TO INCISION. NEG HOMANS' SIGN. PPP. NO EDEMA NOTED TO BLE. PT DENIES PAIN. SR UP X 2. CALL LIGHT IN REACH.
--- NOTE | 2017-08-04 07:40 | NUR ---
DR BATISTA ON UNIT. NOTIFIED OF LAST BP. NEW ORDERS RECEIVED.
--- NOTE | 2017-08-04 08:52 | NUR ---
PT SITTING UP IN BED. VISITS WITH SO. DENIES C/O OR NEEDS.
--- NOTE | 2017-08-04 09:50 | NUR ---
PT LYING TO LEFT SIDE IN BED. EYES CLOSED. RESP NON-LABORED. PT NOT DISTURBED TO ALLOW FOR REST.
--- NOTE | 2017-08-04 10:53 | NUR ---
PT LYING SUPINE IN BED. EYES CLOSED. RESP NON-LABORED. PT NOT DISTURBED TO ALLOW FOR REST.
--- NOTE | 2017-08-04 12:11 | NUR ---
BP CHECKED AND NOTED. PT STATES "I WOKE UP WITH A HEADACHE". DTR'S 1+/1+; NO CLONUS. NO EDEMA NOTED TO BLE. PPP. PERRLA. PT DENIES VISUAL PROBLEMS, EPIG OR RUQ PAIN.
--- NOTE | 2017-08-04 12:12 | NUR ---
DR BATISTA NOTIFIED OF PT BP AND C/O HEADACHE. NEW ORDER RECEIVED.
--- NOTE | 2017-08-04 12:41 | NUR ---
DR RAJAN NOTIFIED OF CONSULT. INFORMED OF PT HISTORY, INCLUDING ELEVATED BP ON ADMIT, MAGNESIUM SULFATE, DELIVERY ON TUESDAY, BP'S TODAY, MEDS, . NEW ORDERS RECEIVED AND STATES WILL COME SEE PT THIS EVENING.
--- NOTE | 2017-08-04 12:54 | NUR ---
PT C/O HEADACHE OF "4" ON 0-10 PAIN SCALE. MOTRIN 600 MG AND NORCO 10/325 GIVEN PO AT PT REQUEST FOR BOTH PAIN MEDS. PT INSTRUCTED ON MEDS. VERBALIZES UNDERSTANDING.
--- NOTE | 2017-08-04 13:30 | NUR ---
DR BATISTA VISITS WITH PT. DISCUSSES POC WITH PT.
--- NOTE | 2017-08-04 14:03 | NUR ---
PT SITTING UP IN BED. VS NOTED. STATES HEADACHE RELIEVED. DENIES C/O OR NEEDS.
--- NOTE | 2017-08-04 14:15 | NUR ---
PT AMBULATORY IN HALLS. ABEBE ACTIVITY WELL. SO WITH PT.
--- NOTE | 2017-08-04 14:38 | NUR ---
PT OOB AND UP TO SHOWER. BED LINENS CHANGED.
--- NOTE | 2017-08-04 15:29 | NUR ---
PT SITTING UP IN BED. STATES TOLERATED SHOWER WITHOUT C/O DIZZINESS. REQUESTS AND RECEIVES ICE WATER.
--- NOTE | 2017-08-04 16:28 | NUR ---
PT SITTING UP IN BED. FEEDING INFANT. DENIES NEEDS OR C/O.
--- NOTE | 2017-08-04 16:35 | NUR ---
YUE ADKINS, RACHEL VISITS WITH PT.
--- NOTE | 2017-08-04 17:44 | NUR ---
PT SITTING UP IN BED. VS NOTED. DENIES HEADACHE, VIS PROBLEMS, EPIG OR RUQ PAIN. DENIES PAIN.
--- NOTE | 2017-08-04 18:45 | NUR ---
DR RAJAN VISITS WITH PT. PT SITTING UP IN BED. FRESH ICE WATER PROVIDED.
--- NOTE | 2017-08-04 19:03 | NUR ---
REPORT GIVEN TO ON-COMING SHIFT.
--- NOTE | 2017-08-04 19:10 | NUR ---
PATIENT REPORT RECEIVED FROM DAYSHIFT TO ASSUME PATIENT CARE. PATIENT SITTING UP IN BED HOLDING . SIDE RAILS UPX2, BED LOW IN LOCKED POSITION, CALL URBINA IN REACH. BEDSIDE TRAY IN REACH WITH FULL WATER PITCHER. DENIES PAIN, HEADACHE, BLURRY VISION, OR N/V. PATIENT INFORMED OF PLAN OF CARE TO PERFORM AN EKG, AM LABS AND NEW BP MEDS. PT VERBALIZES UNDERSTANDING. ALL QUESTIONS ANSWERED.
--- NOTE | 2017-08-04 20:55 | NUR ---
PATIENT SITTING UP IN BED HOLDING INFANT AT THIS TIME. DENIES PAIN OR NEEDS.
--- NOTE | 2017-08-04 21:30 | NUR ---
EKG AT PATIENTS BEDSIDE PER MD ORDERS
--- NOTE | 2017-08-04 22:13 | NUR ---
PATIENT SITTING UP IN BED WATCHING TV, HOLDING INFANT. REQUESTING PAIN MEDICATION FOR A SLIGHT HEADACHE 12/10. IBUPROFEN 600MG PO AT THIS TIME.
[2017-08-05] VITALS (8 sets, daily range): BP systolic 131–155; BP diastolic 71–87
--- NOTE | 2017-08-05 01:34 | NUR ---
PATIENT RESTING WITH EYES CLOSED ON RIGHT SIDE. RESPIRATIONS EVEN AND NON LABORED. REMAINS IN OPEN CRIB AT MOTHERS BEDSIDE.
--- NOTE | 2017-08-05 05:42 | NUR ---
RN TO BEDSIDE FOR ROUNDS. PT RESTING WITH EYES CLOSED. RESPIRATIONS REGULAR AND UNLABORED, NO S/S OF DISTRESS NOTED. BED IN LOW POSITION WITH UPPER SIDE RAILS RAISED X2. CL AND PHONE WITHIN REACH. WILL CONT TO MONITOR AND ASSIST PRN.
[2017-08-05 07:11] LABS: CALC OSMOLALITY 270 mosm/kg (275-300); CALCIUM 9.4 mg/dL (8.5-10.1); CARBON DIOXIDE 25.6 mmol/L (21.0-32.0); CHLORIDE - SERUM 102 mmol/L (98-107); CREATININE - SERUM 0.6 mg/dL (0.6-1.3); GLUCOSE 83 mg/dL (74-106); SODIUM 137 mmol/L (136-145); THYROID STIMULATING HORMONE 2.24 uIU/mL (0.36-3.74); UREA NITROGEN 8 mg/dL (7-18); eGFR NON AFRICAN AMERICAN > 90 mL/min (90-120)
--- NOTE | 2017-08-05 07:30 | NUR ---
RECEIVED PT LYING SUPINE IN BED. EYES CLOSED. RESP NON-LABORED. PT NOT DISTURBED TO ALLOW FOR REST.
--- NOTE | 2017-08-05 08:34 | NUR ---
PT AMBULATORY BACK TO BED FROM BATHROOM. C/O HEADACHE AND INCISIONAL PAIN OF "4" ON 0-10 PAIN SCALE. NORCO 10/325 AND MOTRIN 600 MG GIVEN PO PER PT REQUEST FOR BOTH AT THIS TIME. INSTRUCTED ON MEDS. VERBALIZES UNDERSTANDING.
--- NOTE | 2017-08-05 09:35 | NUR ---
PT SITTING UP IN BED. VS NOTED. C/O MILD HEADACHE. DENIES VIS PROBLEMS, EPIG OR RUQ PAIN. DTR'S 1+/1+; NO CLONUS. NO EDEMA NOTED TO BLE. ABDOMINAL INCISION WITH MEDHAT INTACT WITH NO DRAINAGE, REDNESS, OR SWELLING. NEG HOMANS' SIGN. PT STATES VOIDING WITHOUT DIFFICULTY AND PASSING GAS. NO BM SINCE DELIVERY.
--- NOTE | 2017-08-05 11:20 | NUR ---
DR RAJAN VISITS WITH PT. STATES ORDERED APRESOLINE. WILL REVIEW ORDERS.
--- NOTE | 2017-08-05 11:27 | NUR ---
PT GIVEN ORDERED APRESOLINE PO. INSTRUCTED ON MED. VERBALIZES UNDERSTANDING. PROVIDED PT WITH FRESH ICE WATER.
--- NOTE | 2017-08-05 12:27 | NUR ---
PT SITTING UP IN BED. CONSUMING REG DIET. VS NOTED. DENIES C/O OR NEEDS.
--- NOTE | 2017-08-05 14:59 | NUR ---
PT SITTING UP IN BED. WATCHES TV. VS NOTED. DENIES PAIN OR C/O. REQUESTS AND RECEIVES ICE WATER.
--- NOTE | 2017-08-05 15:30 | NUR ---
PT AMBULATORY IN HALLS. STATES TOLERATING WELL.
--- NOTE | 2017-08-05 16:49 | NUR ---
PT SITTING UP IN BED. HOLDS WITH MUCH WARMTH SHOWN. C/O PAIN OF "5" ON 0-10 PAIN SCALE. REQUESTS AND RECEIVES BOTH NORCO 10/325 AND MOTRIN 600 MG PO. PT INSTRUCTED ON MEDS. FRESH ICE WATER PROVIDED.
--- NOTE | 2017-08-05 18:10 | NUR ---
PT SITTING UP IN BED. DENIES PAIN. REQUESTS AND RECEIVES FRESH ICE WATER.
--- NOTE | 2017-08-05 19:06 | NUR ---
PATIENT REPORT RECEIVED FROM AM SHIFT TO ASSUME PATIENT CARE. IN TO SEE PATIENT AT THIS TIME. PT LYING IN BED RESTING, DENIES NEEDS.
--- NOTE | 2017-08-05 20:57 | NUR ---
PATIENT WALKING AROUND ROOM, BLOOD PRESSURE TAKEN AND MEDICATIONS GIVEN PER MD ORDERS. ICE WATER PROVIDED. PT DENIES OTHER NEEDS.
--- NOTE | 2017-08-05 21:21 | NUR ---
PATIENT WALKING IN THE HERRERA. OFFERED SNACKS, PT DECLINES
--- NOTE | 2017-08-05 22:50 | NUR ---
PATIENT SITTING UP IN BED HOLDING INFANT. DENIES NEEDS AT THIS TIME.
--- NOTE | 2017-08-06 01:15 | NUR ---
PATIENT SITTING UP IN BED HOLDING THE . DENIES NEEDS AT THIS TIME
--- NOTE | 2017-08-06 03:00 | NUR ---
PATIENT LAYING IN BED WITH EYES OPEN, DENIES NEEDS AT THIS TIME. BED LOCKED IN LOW POSITION, CALL URBINA IN REACH. INFANT REMAINS AT BEDSIDE IN OPEN CRIB
--- NOTE | 2017-08-06 04:58 | NUR ---
INFANT TO ROOM VIA OPEN CRIB, ID BANDS VERIFIED. MOTHER DENIES NEEDS AT THIS TIME.
--- NOTE | 2017-08-06 06:05 | NUR ---
PATIENT RESTING QUIETLY IN BED WATCHING TV. PT DENIES ANY NEEDS AT THIS TIME. SIDE RAILS UPX2,BED LOCKED IN LOW POSITION AND CALL URBINA AND TRAY TABLE IN REACH.
[2017-08-06 07:30] VITALS: BP 165/91
--- NOTE | 2017-08-06 07:30 | NUR ---
SITTING UP IN BED GETTING READY TO EAT BREAKFAST. DENIES PAIN OR NEEDING ANYTHING. ANTICIPATES DC HOME TODAY. VISITOR IN ROOM HOLDING INFANT. VS OBTAINED. WILL COMPLETE SHIFT ASSESSMENT AFTER BREAKFAST.
--- NOTE | 2017-08-06 08:16 | NUR ---
SHIFT ASSESSMENT COMPLETED. DENIES PAIN OR NEEDING ANYTHING. DISCUSSED BP MEDICATIONS AND POSSIBLE DISCHARGE PLANS FOR TODAY. NON-SMOKER. INFANT IN ARMS. SIDE RAILS UP X 2, CALL LIGHT IN REACH.
--- NOTE | 2017-08-06 08:52 | NUR ---
DISCUSSED THREE BP MEDS WITH PATIENT INCLUDING ADMINISTRATION, AND MEDS, SIDE EFFECTS, PRECAUTIONS, ORTHOSTATIC HYPOTENSION, ADMINISTRATION, TAKING WITH FOOD AND FOODS TO AVOID. ALSO TO STAND UP SLOWLY, AVOID HAZARDOUS ACTIVITIES, NO DRIVING X 2 WEEKS POST-OP AND UNTIL BP STABLIZED AND BP MEDS STABILIZED. REPORT SOB, DIZZINESS, HEART PALPITATIONS OR OTHER SYMPTOMS. VERBALIZED UNDERSTANDING. DECLINES SHOWER AT THIS TIME. BP 160/93 P 99 AP WITHOUT ARRYTHMIA, R 20 PULSE OX 98%. SIDERAILS UP X 2, CALL LIGHT IN REACH. FOB AND INFANT IN ROOM.
--- NOTE | 2017-08-06 09:17 | NUR ---
DECLINES FLU AND TDAP VACCINATIONS AT THIS TIME. WRITTEN INFORMATION GIVEN. INSTRUCTED SHE CAN RECEIVE AT CLINIC OR HEALTH DEPARTMENT IF SHE CHANGES HER MIND.
--- NOTE | 2017-08-06 09:27 | NUR ---
INFANT TO NURSERY FOR DR KRUSE, SOD CUTTER EVALUATION.
[2017-08-06 10:04] VITALS: BP 177/100
[2017-08-06 10:06] VITALS: BP 152/91
--- NOTE | 2017-08-06 10:09 | NUR ---
SITTING UP IN BED. DENIES NEEDING ANYTHING. BP ASSESSED 177/100. WAITED TWO MINS, ENSURED ARM LEVEL WITH HEART AND REASSESSED 152/91. FRESH WATER GIVEN. ENCOURAGED TO GET OOB TO AMBULATE, VERBALIZED UNDERSTANDING. FOB AND INFANT IN ROOM. SIDE RAILS UP X 2. CALL LIGHT IN REACH.
--- NOTE | 2017-08-06 11:36 | NUR ---
SITTING UP IN BED WAITING ON LUNCH. INFANT AND FOB IN ROOM. DENIES NEEDING ANYTHING AT THIS TIME. CALL LIGHT IN REACH.
--- NOTE | 2017-08-06 13:19 | NUR ---
SITTING UP IN BED WITH IN ARMS. AWAITING ON DR LINARES TO MAKE ROUNDS AND PLAN FOR DISCHARGE. INFANT HAS BEEN DISCHARGED. DENIES NEEDING ANYTHING AT THIS TIME.
[2017-08-06 13:26] VITALS: BP 146/88
[2017-08-06] MEDS ORDERED: HYDRALAZINE HCL25 MG PO (13:38)
[2017-08-06] MEDS ORDERED: METOPROLOL TART50 MG PO (13:38)
[2017-08-06] MEDS ORDERED: NIFEDIPINE ER60 MG PO (13:38)
--- NOTE | 2017-08-06 13:39 | NUR ---
DR RAJAN HERE. NOTIFIED THAT HAS BEEN DC'D AND PER DR JEAN JUST WAITING ON DC ORDER FROM HIM. ALSO INFORMED PT WILL NEED RX'S FOR ANTIHYPERTENSIVE MEDS. PT ALREADY HAS RX PRESCRIPTION, FORM DR BATISTA, FOR PAIN MANAGEMENT.
--- NOTE | 2017-08-06 14:20 | NUR ---
DC INSTRUCTIONS COMPLETED TO INCLUDE POSTOP C/S CARE, ROUTINE PP CARE, PP DEPRESSION, S&S INFECTION, /BREASTCARE, MEDICATION ADMINISTRATION, HTN MEDICATIONS, HTN EDUCATION, COMMUNITY RESOURCES, IMMUNIZATIONS, INFANT CAR SAFETY, BP MEASUREMENT ALONG WITH CHART TO DOCUMENT BP'S TO BRING TO FAMILY PRACTICE PHYSICIAN. HAS F/U SCHEDULED FOR STAPLE REMOVAL, TO CALL TUESDAY FOR F/U WITH HER PCM NEXT WEEK. PRESCRIPTIONS FROM DR BATISTA AND DR RAJAN GIVEN TO PATIENT WITH VERBAL AND WRITTEN INSTRUCTIONS. VERBALIZED UNDERSTANDING. ENCOURAGED TO READ HANDOUT INFORMATION. OK TO CALL L&D IF ANY QUESTIONS OR CONCERNS. VERBALIZED UNDERSTANDING. WILL DC VIA W/C TO CAR AFTER DC'D.
--- NOTE | 2017-08-06 14:41 | NUR ---
DC'D VIA WHEELCHAIR TO CAR WITH . ALL BELONGINGS REMOVED FROM ROOM. HAS DC INSTRUCTIONS AND PRESCRIPTIONS.
--- NOTE | 2017-10-01 13:28 | OP ---
PATIENT NAME: JARRETT FALLON MEDICAL RECORD: [id number] :73 LOCATION[facility] ADMISSION DATE:08/01/17 SURGEON: SILVER LANDRY MD DATE OF OPERATION: 08/01/2017 PREOPERATIVE DIAGNOSIS: Severe preeclampsia, remote from delivery. POSTOPERATIVE DIAGNOSES: Severe preeclampsia, remote from delivery and extensive adhesive disease. PROCEDURE: Primary low transverse section and lysis of adhesions. SURGEON: Silver Landry MD ANESTHESIA: Regional via spinal. ESTIMATED BLOOD LOSS: 1200 cc. INTRAVENOUS FLUIDS: Per anesthesia record. SPECIMENS: Placenta and cord for gases. FINDINGS: 1. Extensive adhesive disease likely consistent with history of PID. 2. Normal appearing ovaries. 3. Placenta delivered manually intact. 4. Three-vessel cord and nuchal cord times 1. 5. Viable , Apgars 9 at 1 and 9 at 5. COMPLICATIONS: None apparent. PROCEDURE IN DETAIL: The patient was taken to the operating room where regional anesthesia was achieved without difficulty. The patient was prepped and draped in normal sterile fashion in the dorsal supine position. A Melo catheter had been placed and was draining freely. SCDs were on and functioning normally. After prep and drape, a Pfannenstiel skin incision was made, extended downward to the underlying subcutaneous fat to level of the fascia, which was then excised in the midline with a scalpel and extended bilaterally using the Marino scissors. The superior and inferior aspects of the fascial incision were then grasped with Celso clamps times 2, tented upward, and sharply dissected from the underlying rectus muscle using the Marino scissors and the Bovie cautery. Rectus muscles were then bluntly in the midline and the pyramidalis muscle was at its midline raphae using the Metzenbaum scissors. The peritoneum was entered sharply at the superior aspect of the incision using the Metzenbaum scissors. Peritoneal incision was extended bilaterally using the Metzenbaum scissors and Bovie cautery. A bladder blade was placed into the pelvis and a bladder flap was created by excising the anterior leaf of the broad ligament across the lower uterine segment. The bladder flap was developed and the bladder blade was replaced over the bladder flap. A low transverse incision was made with a scalpel and extended superiorly and inferiorly using the Pelosi method. At this point, the vertex was noted to be extended. The Kiwi handheld vacuum was applied to the occiput and correction to head flexion. No pop offs. No traction placed on the neck. Application time approximately 10 seconds. Upon delivery of the head, the vacuum was removed with no evidence of trauma or hematoma. The body was then delivered OPERATIVE REPORT [id number] JARRETT FALLON atraumatically. A nuchal cord was noted and reduced. The was bulb suctioned upon delivery. The cord was clamped times 2, cut, and the was handed to awaiting nursery team. Cord was then obtained for gases, placenta was then removed manually intact, 3-vessel cord was noted. The uterus was exteriorized, cleared of all clots and debris, and the uterine incision was repaired with 0 Vicryl in a running locked fashion times 2. Good hemostasis was noted. Posterior cul-de-sac was then thoroughly irrigated and the uterus was replaced into the pelvis. The anterior cul-de-sac was then irrigated and again excellent hemostasis was noted. Counts were correct times 2 for needles, instruments, and sponges. The fascia was repaired with 0 loop PDS and the skin repaired with ruthie. The patient tolerated the procedure well, was transferred to postanesthesia recovery stable without incident. TRANSINT:[id number] Voice Confirmation ID: [id number] DOCUMENT ID: [id number] SILVER LANDRY MD at 1328 CC: [id number] DICTATION DATE: 10/01/17 1121 LASER BEAM TRIM OPERATOR: 10/01/17 1323 DIS IN 08/06/17 [id number] [place] [address]
--- NOTE | 2017-10-15 06:53 | DS ---
PATIENT:JARRETT FALLON :73 MEDICAL RECORD: [id number] DISCHARGE SUMMARY ADMISSION DATE: 08/01/17 DISCHARGE DATE: 08/06/17 HISTORY OF PRESENT ILLNESS: The patient was admitted on 08/01/2017 at 36 weeks and 6 days with likely severe preeclampsia. The patient was noted to be B positive, group B strep unknown, rubella immune. The patient had been seen in the office on that day with elevated blood pressures in the severe range up to 180 systolic. The patient was reporting blurry vision and shortness of breath. The patient had 3+ protein in the urine and continued BPs in the severe range. The patient was given 20 of labetalol IV. The patient was consented for due to severe preeclampsia, remote from delivery. These scenarios were explained to the patient including recommendation to proceed with . The patient voiced understanding and consent. PAST MEDICAL HISTORY: The patient had a past medical history significant for advanced maternal age and history of a LEEP procedure. The patient reported no past surgical history. ALLERIGES: No known allergies. MEDICINES: Included only iron supplementation. FAMILY HISTORY: The patient reported no significant family history. SOCIAL HISTORY: Negative times 3. PHYSICAL EXAMINATION: VITAL SIGNS: On initial assessment, vital signs were: The patient's temp was 99, pulse was 110, blood pressures ranged from 130-180/80s-90s. LUNGS: Clear to auscultation. CARDIOVASCULAR: Regular rate and rhythm. PELVIC: Uterus was appropriately sized and nontender. EXTREMITIES: Lower extremities were free of Homans sign. LABORATORY DATA: On initial lab work, the patient had normal liver enzymes, normal creatinine, platelet count was noted to be 239 with a hemoglobin of 11. As noted before, 3+ protein was noted on the urine. ASSESSMENT AND PLAN: At that time; 1. Intrauterine at 36 weeks and 6 days. 2. Severe preeclampsia. 3. Advanced maternal age. 4. History of cervical dysplasia. HOSPITAL COURSE: Due to the high blood pressure necessitating IV medications and unfavorable cervix, plan was made at that time to proceed with section. Risks and benefits were explained to the patient. The patient voiced understanding and consent. was performed. The patient was started on magnesium sulfate therapy postoperatively. The patient did well overnight on postop day #0 with improving blood pressures, the patient tolerating clear liquid diet, on IV fluids, Dilaudid RECORDS AND INFORMATION MANAGER for pain control as well as IV Toradol. Melo catheter was left in overnight and urine output was found to be adequate. Lower extremities were free of Homans sign, and SCDs were on and functioning normally. On the morning of postop day #1 status post low transverse DISCHARGE SUMMARY REPORT [id number] JARRETT FALLON S section, I found that the on-call physician had to give the patient several doses of IV hydralazine overnight for blood pressure control and I started the patient on p.o. labetalol. The patient was also started on general diet, p.o. pain meds. Magnesium sulfate was continued at that time and the Melo catheter was continued as well. Hemoglobin was found to be stable. The uterus was infraumbilical, and the incision was clean, dry, and intact. Blood pressures improved on p.o. labetalol and the patient did well overnight. On the morning of postop day #2, the blood pressures were found to be elevated in the morning to 170s systolic. Labetalol was increased to 300 mg every 8 hours. The uterus was infraumbilical and nontender. The incision remained clean, dry, and intact. Blood pressures overnight on postop day #2 continued to be labile. The labetalol was discontinued and the patient was started on Procardia 60 mg. The patient's primary care doctor was consulted to assist with hypertension management. Incision remained clean, dry, and intact. Uterus was infraumbilical. Vital signs were stable other than the elevated blood pressure. Hemoglobin was found to be stable as well. The patient was started on Lopressor and hydralazine per Dr. Alvarez and with improvement of the blood pressures. Incision was clean, dry, and intact. The uterus was infraumbilical. The patient was discharged home on postop day #4 with instructions to follow up for staple removal the next week and to follow up PCP for blood pressure control. TRANSINT:[id number] Voice Confirmation ID: [id number] DOCUMENT ID: [id number] RADHA BATISTA MD at 0653 CC: [id number] DICTATION DATE: 10/01/17 1126 CROP PEST CONTROL SPECIALIST: 10/01/17 1359 DIS IN 08/06/17 [facility] [address] [place] [address]
== END 2017-08-06 14:41 | disposition home or self-care (01) | DRG 766 ==
LOC: D.LDO 10:27 → D.LD 12:44
PROVIDERS: Family Medicine; ADMIT Obstetrics & Gynecology
PROC: 10D00Z1 Extraction of Products of Conception, Low, Open Approach (ICD-10-PCS; principal; 2017-08-01 13:46)
DX: O14.94 Unspecified pre-eclampsia, complicating childbirth (principal); Z3A.36 36 weeks gestation of pregnancy; Z37.0 Single live birth; O69.81X0 Labor and delivery complicated by cord around neck, without compression, not applicable or unspecified